=== PATIENT | male | born 1935 | race Caucasian/White ===

== ENCOUNTER 2016-11-26 16:45 | Observation (INO) | payer MEDICARE, BC ==
[~2016-11-26] VITALS: Ht 188 cm; Wt 90.8 kg
[2016-11-26 17:43] LABS: HEMOGLOBIN 13.2 gm/dl (14.0-17.5); RED BLOOD COUNT 4.43 M/UL (4.20-5.50); WHITE BLOOD COUNT 3.1 K/UL (4.5-11.0)
[2016-11-26] MEDS ORDERED: ASPIR 8181 MG PO (23:42)
[2016-11-26] MEDS ORDERED: PLAVIX 75 MG TA75 MG PO (23:42)
[2016-11-26] MEDS ORDERED: HYDRALAZINE HC100 MG PO (23:43)
[2016-11-26] MEDS ORDERED: JALYN 0.5-0.41 EACH PO (23:44)
[2016-11-26] MEDS ORDERED: METOPROLOL SUC100 MG PO (23:45)
[2016-11-26] MEDS ORDERED: PRAVACHOL40 MG PO (23:45)
[2016-11-27 05:02] LABS: HEMOGLOBIN 12.8 gm/dl (14.0-17.5); RED BLOOD COUNT 4.35 M/UL (4.20-5.50); WHITE BLOOD COUNT 3.4 K/UL (4.5-11.0)
[2016-11-27 05:21] LABS: BUN/CREATININE RATIO 24 (0-10)
== END 2016-11-27 19:48 | disposition home or self-care (01) ==
LOC: ER1 16:45 → M/S 20:44 → ZEROF 20:44 → M/S 22:34
PROVIDERS: Specialist/Technologist Athletic Trainer; ADMIT Emergency Medicine
DX: R06.02 Shortness of breath (principal); R53.83 Other fatigue; M62.81 Muscle weakness (generalized); I25.10 Atherosclerotic heart disease of native coronary artery without angina pectoris; E78.5 Hyperlipidemia, unspecified; N21.1 Calculus in urethra; I12.9 Hypertensive chronic kidney disease with stage 1 through stage 4 chronic kidney disease, or unspecified chronic kidney disease; N18.3 Chronic kidney disease, stage 3 (moderate); R73.03 Prediabetes; I65.23 Occlusion and stenosis of bilateral carotid arteries; Z95.1 Presence of aortocoronary bypass graft; Z86.73 Personal history of transient ischemic attack (TIA), and cerebral infarction without residual deficits
CPT/HCPCS: ECHO; 36415; 71020; 80048; 80053; 82550; 82553; 83880; 84484; 85025; 85027; 85379; 85610; 93005; 93306; 93970; 96360; 96372; 99285; G0378; J1650; J1940; J7050; Q9963

== ENCOUNTER 2020-09-06 12:08 | Emergency (ER) | payer MEDICARE, BC ==
[~2020-09-06 12:08] MED LIST: ASPIR 8181 MG PO; ELIQUIS5 MG PO; HYDRALAZINE HC100 MG PO; JALYN 0.5-0.41 EACH PO; KLOR-CON M2020 MEQ PO; LASIX 40 MG TAB40 MG PO; METOPROLOL SUC100 MG PO; PLAVIX 75 MG TA75 MG PO; PRAVACHOL40 MG PO; SALINE NOSE SPR45 ML; TYLENOL EXTRA500 MG PO
[2020-09-06 13:01] LABS: HEMOGLOBIN 12.5 gm/dl (14.0-17.5); RED BLOOD COUNT 4.1 M/UL (4.20-5.50); WHITE BLOOD COUNT 10.1 K/UL (4.5-11.0)
[2020-09-06] MEDS ORDERED: CEFUROXIME500 MG PO (17:25)
== END 2020-09-06 17:42 | disposition home or self-care (01) ==
LOC: ER1 12:08
PROVIDERS: Physician Assistant
DX: R07.89 Other chest pain (principal); N39.0 Urinary tract infection, site not specified; E86.0 Dehydration; N28.9 Disorder of kidney and ureter, unspecified; R79.1 Abnormal coagulation profile; I10 Essential (primary) hypertension; E78.5 Hyperlipidemia, unspecified; I50.9 Heart failure, unspecified; I11.0 Hypertensive heart disease with heart failure; Z86.73 Personal history of transient ischemic attack (TIA), and cerebral infarction without residual deficits; Z95.1 Presence of aortocoronary bypass graft
CPT/HCPCS: 71045; 80048; 80053; 81001; 82550; 82553; 83874; 84484; 85025; 85379; 87086; 93005; 96365; 99284; J0696; J7030

== ENCOUNTER → 2020-09-08 | Outpatient (CLI) | payer MEDICARE, BC ==
[~2020-09-08] MED LIST changes: +ALLOPURINOL100 MG PO; +CEFUROXIME500 MG PO; +FLOMAX0.4 MG PO; +ISOSORBIDE MONO30 MG PO; +ISOSORBIDE MONO60 MG PO; +LEVOFLOXACIN250 MG PO; +LIPITOR80 MG PO; +NITROSTAT 0.40.4 MG SL; +OMNICEF 300 MG300 MG PO; +TEMAZEPAM7.5 MG PO; +TRICOR 145 MG145 MG PO
== END ==
LOC: KOH-I 14:13
DX: M25.512 Pain in left shoulder (principal); M19.012 Primary osteoarthritis, left shoulder
CPT/HCPCS: 73030

== ENCOUNTER 2020-09-27 18:33 | Inpatient (IN) | payer MEDICARE, BC ==
[~2020-09-27] VITALS: Ht 188 cm; Wt 88.0 kg
[~2020-09-27 18:33] MED LIST changes: -ALLOPURINOL100 MG PO; -FLOMAX0.4 MG PO; -ISOSORBIDE MONO30 MG PO; -ISOSORBIDE MONO60 MG PO; -LEVOFLOXACIN250 MG PO; -LIPITOR80 MG PO; -NITROSTAT 0.40.4 MG SL; -OMNICEF 300 MG300 MG PO; -TEMAZEPAM7.5 MG PO; -TRICOR 145 MG145 MG PO
[2020-09-27 19:38] LABS: HEMOGLOBIN 12.3 gm/dl (14.0-17.5); RED BLOOD COUNT 3.98 M/UL (4.20-5.50); WHITE BLOOD COUNT 10.6 K/UL (4.5-11.0)
[2020-09-28] MEDS ORDERED: ALLOPURINOL100 MG PO (09:47)
[2020-09-28] MEDS ORDERED: LIPITOR80 MG PO (09:47)
[2020-09-28] MEDS ORDERED: TRICOR 145 MG145 MG PO (09:48)
[2020-09-28] MEDS ORDERED: ISOSORBIDE MONO30 MG PO (09:56)
[2020-09-28] MEDS ORDERED: ISOSORBIDE MONO60 MG PO (09:57)
[2020-09-28] MEDS ORDERED: KLOR-CON M2020 MEQ PO (09:58)
[2020-09-28] MEDS ORDERED: NITROSTAT 0.40.4 MG SL (10:00)
[2020-09-28] MEDS ORDERED: FLOMAX0.4 MG PO (10:02)
[2020-09-28] MEDS ORDERED: TEMAZEPAM7.5 MG PO (10:08)
[2020-09-28] MEDS ORDERED: LEVOFLOXACIN250 MG PO (10:08)
[2020-09-29 06:20] LABS: HEMOGLOBIN 11.2 gm/dl (14.0-17.5); RED BLOOD COUNT 3.64 M/UL (4.20-5.50); WHITE BLOOD COUNT 9.1 K/UL (4.5-11.0)
== END 2020-09-29 13:06 | disposition home or self-care (01) | DRG 660 ==
LOC: ER1 18:33 → CDU 09-28 01:01 → MED SURG 4 09-28 01:14
PROVIDERS: Emergency Medicine; Family Medicine; Urology; ADMIT Internal Medicine
PROC: 0T768DZ Dilation of Right Ureter with Intraluminal Device, Via Natural or Artificial Opening Endoscopic (ICD-10-PCS; principal; 2020-09-28 12:57)
DX: T83.592A Infection and inflammatory reaction due to indwelling ureteral stent, initial encounter (principal); N13.6 Pyonephrosis; I13.0 Hypertensive heart and chronic kidney disease with heart failure and stage 1 through stage 4 chronic kidney disease, or unspecified chronic kidney disease; N17.9 Acute kidney failure, unspecified; Y82.8 Other medical devices associated with adverse incidents; I25.10 Atherosclerotic heart disease of native coronary artery without angina pectoris; N40.0 Benign prostatic hyperplasia without lower urinary tract symptoms; Z20.822 Contact with and (suspected) exposure to COVID-19; N18.30 Chronic kidney disease, stage 3 unspecified; I50.9 Heart failure, unspecified; E86.0 Dehydration; Z95.5 Presence of coronary angioplasty implant and graft; Z95.1 Presence of aortocoronary bypass graft; Z86.73 Personal history of transient ischemic attack (TIA), and cerebral infarction without residual deficits; Z79.82 Long term (current) use of aspirin
CPT/HCPCS: 36415; 80048; 80053; 81001; 83605; 85025; 85027; 85610; 87040; 87086; 93005; 96365; 99284; C1769; C1894; C2617; J0696; J1100; J2001; J2405; J2543; J2704; J3010; J7030; J7120; U0002

== ENCOUNTER → 2020-10-19 | Outpatient (CLI) | payer MEDICARE, BC ==
[~2020-10-19] MED LIST changes: +ALLOPURINOL100 MG PO; +FLOMAX0.4 MG PO; +ISOSORBIDE MONO30 MG PO; +ISOSORBIDE MONO60 MG PO; +LEVOFLOXACIN250 MG PO; +LIPITOR80 MG PO; +NITROSTAT 0.40.4 MG SL; +OMNICEF 300 MG300 MG PO; +TEMAZEPAM7.5 MG PO; +TRICOR 145 MG145 MG PO
== END ==
LOC: RAD 15:12
DX: N20.0 Calculus of kidney (principal); Z96.0 Presence of urogenital implants
CPT/HCPCS: 74018

== ENCOUNTER 2020-11-11 12:17 | Emergency (ER) | payer MEDICARE, BC ==
[~2020-11-11 12:17] MED LIST changes: -OMNICEF 300 MG300 MG PO
[2020-11-11 13:09] LABS: HEMOGLOBIN 11.2 gm/dl (14.0-17.5); RED BLOOD COUNT 3.63 M/UL (4.20-5.50); WHITE BLOOD COUNT 6.9 K/UL (4.5-11.0)
[2020-11-11] MEDS ORDERED: OMNICEF 300 MG300 MG PO (15:19)
== END 2020-11-11 15:46 | disposition home or self-care (01) ==
LOC: ER1 12:17
PROVIDERS: Physician Assistant
DX: N20.2 Calculus of kidney with calculus of ureter (principal); I10 Essential (primary) hypertension; Z87.442 Personal history of urinary calculi
CPT/HCPCS: 80053; 81001; 82550; 82553; 83874; 84484; 85025; 87040; 87086; 93005; 96374; 99285; J0696

== ENCOUNTER 2021-01-22 13:51 | Emergency (ER) | payer MEDICARE, BC ==
[~2021-01-22 13:51] MED LIST changes: +OMNICEF 300 MG300 MG PO
== END 2021-01-22 17:29 | disposition home or self-care (01) ==
LOC: ER1 13:51
DX: R04.0 Epistaxis (principal); I25.10 Atherosclerotic heart disease of native coronary artery without angina pectoris; I10 Essential (primary) hypertension
CPT/HCPCS: 30901; 99283

== ENCOUNTER → 2021-03-08 | Outpatient (CLI) | payer MEDICARE, BC | LOC: KOH-I 11:30 | DX: R10.9 Unspecified abdominal pain (principal); N28.1 Cyst of kidney, acquired | CPT/HCPCS: 76775 ==

== ENCOUNTER → 2021-05-10 | Outpatient (CLI) | payer MEDICARE, BC ==
[~2021-05-10] VITALS: Ht 188 cm; Wt 90.3 kg
== END ==
LOC: OPSV 08:31
DX: D62 Acute posthemorrhagic anemia (principal)
CPT/HCPCS: 96365; J1756

== ENCOUNTER → 2021-05-14 | Outpatient (CLI) | payer MEDICARE, BC ==
[~2021-05-14] VITALS: Ht 188 cm; Wt 90.3 kg
== END ==
LOC: OPSV 09:00
DX: D62 Acute posthemorrhagic anemia (principal)
CPT/HCPCS: 96365; J1756

== ENCOUNTER → 2021-05-16 | Outpatient (CLI) | payer MEDICARE, BC ==
[~2021-05-16] VITALS: Ht 188 cm; Wt 90.3 kg
== END ==
LOC: OPSV 09:00
DX: D62 Acute posthemorrhagic anemia (principal)
CPT/HCPCS: 96365; J1756

== ENCOUNTER → 2021-05-18 | Outpatient (CLI) | payer MEDICARE, BC ==
[~2021-05-18] VITALS: Ht 188 cm; Wt 90.3 kg
[~2021-05-18] MED LIST changes: +ALDACTONE 25MG25 MG PO; +DEMADEX 20 MG T20 MG PO; +ELIQUIS2.5 MG PO; +MULTAQ 400 MG400 MG PO; +ZYLOPRIM 100 M100 MG PO
== END ==
LOC: OPSV 08:47
DX: D62 Acute posthemorrhagic anemia (principal)
CPT/HCPCS: 96365; J1756

== ENCOUNTER → 2021-05-21 | Outpatient (CLI) | payer MEDICARE, BC | LOC: OPSV 09:00 | DX: D62 Acute posthemorrhagic anemia (principal) | CPT/HCPCS: 96365; J1756 ==

== ENCOUNTER 2021-05-24 19:17 | Inpatient (IN) | payer MEDICARE, BC ==
[~2021-05-24] VITALS: Ht 188 cm; Wt 89.4 kg
[~2021-05-24 19:17] MED LIST changes: -ALDACTONE 25MG25 MG PO; -DEMADEX 20 MG T20 MG PO; -ELIQUIS2.5 MG PO; -MULTAQ 400 MG400 MG PO; -ZYLOPRIM 100 M100 MG PO
[2021-05-24 20:39] LABS: HEMOGLOBIN 9.6 gm/dl (14.0-17.5); RED BLOOD COUNT 3.21 M/UL (4.20-5.50); WHITE BLOOD COUNT 7.2 K/UL (4.5-11.0)
[2021-05-25] MEDS ORDERED: DEMADEX 20 MG T20 MG PO (08:49)
[2021-05-25] MEDS ORDERED: ZYLOPRIM 100 M100 MG PO (08:50)
[2021-05-25] MEDS ORDERED: HYDRALAZINE HC100 MG PO (08:50)
[2021-05-25] MEDS ORDERED: MULTAQ 400 MG400 MG PO (08:51)
[2021-05-25] MEDS ORDERED: ELIQUIS2.5 MG PO (08:52)
[2021-05-25] MEDS ORDERED: ALDACTONE 25MG25 MG PO (08:54)
[2021-05-26 02:32] LABS: HEMOGLOBIN 9.2 gm/dl (14.0-17.5); RED BLOOD COUNT 3.13 M/UL (4.20-5.50); WHITE BLOOD COUNT 6.4 K/UL (4.5-11.0)
[2021-05-26] MEDS ORDERED: DEMADEX 20 MG T20 MG PO (09:25)
== END 2021-05-26 10:29 | disposition home or self-care (01) | DRG 291 ==
LOC: ER1 19:17 → PROG CARE 05-25 07:39 → CDU 05-25 07:39 → PROG CARE 05-25 16:28
PROVIDERS: Internal Medicine Nephrology; Student in an Organized Health Care Education/Training Program; ADMIT Internal Medicine
PROC: B24BZZZ Ultrasonography of Heart with Aorta (ICD-10-PCS; principal; 2021-05-25)
DX: I13.0 Hypertensive heart and chronic kidney disease with heart failure and stage 1 through stage 4 chronic kidney disease, or unspecified chronic kidney disease (principal); I50.23 Acute on chronic systolic (congestive) heart failure; N17.9 Acute kidney failure, unspecified; J98.11 Atelectasis; Z20.822 Contact with and (suspected) exposure to COVID-19; D63.1 Anemia in chronic kidney disease; D50.9 Iron deficiency anemia, unspecified; I08.1 Rheumatic disorders of both mitral and tricuspid valves; M10.9 Gout, unspecified; I48.91 Unspecified atrial fibrillation; N18.32 Chronic kidney disease, stage 3b; I27.20 Pulmonary hypertension, unspecified; E78.00 Pure hypercholesterolemia, unspecified; Z79.82 Long term (current) use of aspirin; Z79.899 Other long term (current) drug therapy; Z82.49 Family history of ischemic heart disease and other diseases of the circulatory system; Z80.9 Family history of malignant neoplasm, unspecified; Z98.42 Cataract extraction status, left eye; Z98.41 Cataract extraction status, right eye; Z95.5 Presence of coronary angioplasty implant and graft; Z95.1 Presence of aortocoronary bypass graft; Z79.01 Long term (current) use of anticoagulants
CPT/HCPCS: ECHO; 36415; 71045; 80048; 80053; 80069; 82550; 82553; 82728; 83540; 83550; 83874; 83880; 84439; 84443; 84484; 85025; 93005; 93306; 99285; J1756; J1940; U0002

== ENCOUNTER → 2021-05-28 | Outpatient (CLI) | payer MEDICARE, BC ==
[~2021-05-28] MED LIST changes: +ALDACTONE 25MG25 MG PO; +DEMADEX 20 MG T20 MG PO; +ELIQUIS2.5 MG PO; +MULTAQ 400 MG400 MG PO; +ZYLOPRIM 100 M100 MG PO
== END ==
LOC: LAB 08:53
PROVIDERS: Internal Medicine Nephrology
DX: N17.9 Acute kidney failure, unspecified (principal)
CPT/HCPCS: 36415; 80048

== ENCOUNTER → 2021-09-14 | Outpatient (CLI) | payer MEDICARE, BC | LOC: EROP 10:56 | DX: U07.1 COVID-19 (principal); Z23 Encounter for immunization; I13.10 Hypertensive heart and chronic kidney disease without heart failure, with stage 1 through stage 4 chronic kidney disease, or unspecified chronic kidney disease; E11.22 Type 2 diabetes mellitus with diabetic chronic kidney disease; N18.9 Chronic kidney disease, unspecified; Z86.73 Personal history of transient ischemic attack (TIA), and cerebral infarction without residual deficits | CPT/HCPCS: M0247; Q0247 ==

== ENCOUNTER → 2021-09-19 | Outpatient (CLI) | payer MEDICARE, BC ==
[2021-09-19 09:51] LABS: HEMOGLOBIN 10.5 gm/dl (14.0-17.5); RED BLOOD COUNT 3.52 M/UL (4.20-5.50); WHITE BLOOD COUNT 15.4 K/UL (4.5-11.0)
[2021-09-20 11:16] LABS: CREATININE, URINE 65.7 mg/dL (Not Estab.)
== END ==
LOC: LAB 09:11
PROVIDERS: Internal Medicine Nephrology
DX: N18.31 Chronic kidney disease, stage 3a (principal); D50.0 Iron deficiency anemia secondary to blood loss (chronic)
CPT/HCPCS: 36415; 80053; 82043; 82570; 82728; 83540; 83550; 85027

== ENCOUNTER → 2021-09-20 | Outpatient (CLI) | payer MEDICARE, BC ==
[2021-09-20 21:13] LABS: HEMOGLOBIN 8.8 gm/dl (14.0-17.5)
[2021-09-20 21:14] LABS: RED BLOOD COUNT 2.94 M/UL (4.20-5.50)
== END ==
LOC: EROP 15:27
PROVIDERS: Internal Medicine
DX: U07.1 COVID-19 (principal); D72.829 Elevated white blood cell count, unspecified
CPT/HCPCS: 80048; 81001; 85027; 87086; 96361; 96365; J1335

== ENCOUNTER 2021-10-31 10:09 | Emergency (ER) | payer MEDICARE, BC ==
[2021-10-31 11:23] LABS: HEMOGLOBIN 7.8 gm/dl (14.0-17.5); RED BLOOD COUNT 2.51 M/UL (4.20-5.50); WHITE BLOOD COUNT 8.4 K/UL (4.5-11.0)
[2021-10-31 21:38] LABS: HEMOGLOBIN 9.1 gm/dl (14.0-17.5)
== END 2021-10-31 21:35 | disposition home or self-care (01) ==
LOC: ER1 10:09
PROVIDERS: Physician Assistant
DX: T83.89XA Other specified complication of genitourinary prosthetic devices, implants and grafts, initial encounter (principal); D64.89 Other specified anemias; I48.91 Unspecified atrial fibrillation; I11.0 Hypertensive heart disease with heart failure; I50.9 Heart failure, unspecified; F17.200 Nicotine dependence, unspecified, uncomplicated; R53.1 Weakness; I13.0 Hypertensive heart and chronic kidney disease with heart failure and stage 1 through stage 4 chronic kidney disease, or unspecified chronic kidney disease; Z79.01 Long term (current) use of anticoagulants; I48.0 Paroxysmal atrial fibrillation; X58.XXXA Exposure to other specified factors, initial encounter
CPT/HCPCS: 70450; 71045; 80048; 80053; 81001; 82550; 82553; 83880; 84484; 85014; 85018; 85025; 86850; 86900; 86901; 86920; 93005; 99285; P9016

== ENCOUNTER → 2021-12-06 | Outpatient (CLI) | payer MEDICARE, BC ==
[2021-12-06 11:05] LABS: HEMOGLOBIN 9.4 gm/dl (14.0-17.5); RED BLOOD COUNT 2.95 M/UL (4.20-5.50); WHITE BLOOD COUNT 8.8 K/UL (4.5-11.0)
== END ==
LOC: LAB 10:27
PROVIDERS: Physician Assistant
DX: N18.9 Chronic kidney disease, unspecified (principal); D63.1 Anemia in chronic kidney disease
CPT/HCPCS: 36415; 80048; 85025

== ENCOUNTER → 2022-02-05 | Outpatient (CLI) | payer MEDICARE, BC ==
[2022-02-05 17:06] LABS: HEMOGLOBIN 11.8 gm/dl (14.0-17.5); RED BLOOD COUNT 3.86 M/UL (4.20-5.50); WHITE BLOOD COUNT 6.7 K/UL (4.5-11.0)
== END ==
LOC: LAB 15:26
PROVIDERS: Internal Medicine Nephrology
DX: D50.0 Iron deficiency anemia secondary to blood loss (chronic) (principal)
CPT/HCPCS: 36415; 80048; 82728; 83540; 83550; 85025; 85027

== ENCOUNTER → 2022-02-21 | Outpatient (CLI) | payer MEDICARE, BC | LOC: LAB 13:41 | PROVIDERS: Internal Medicine Nephrology | DX: N18.31 Chronic kidney disease, stage 3a (principal) | CPT/HCPCS: 36415; 80048 ==

== ENCOUNTER → 2022-03-25 | Outpatient (CLI) | payer MEDICARE, BC | LOC: LAB 12:44 | PROVIDERS: Internal Medicine Nephrology | DX: N18.31 Chronic kidney disease, stage 3a (principal) | CPT/HCPCS: 36415; 80048 ==